=== PATIENT | male | born 1955 | race African-American/Black ===

== ENCOUNTER 2019-08-29 21:48 | Emergency (ER) | payer OTHER ==
[~2019-08-29] VITALS: Ht 170.2 cm; Wt 86.2 kg
[~2019-08-29 21:48] MED LIST: KEFLEX500 MG PO; LOPRESSOR25 PO; METFORMIN HCL500 MG PO; NORCO 5-325 TA1 EACH PO; PERCOCET 5-3251 EACH PO
[2019-08-29] MEDS ORDERED: NORVASC2.5 M1 PO (21:55)
[2019-08-29] MEDS ORDERED: KEFLEX500 M2 PO (23:58)
[2019-08-30 00:03] VITALS: BP 143/90
== END 2019-08-30 00:10 | disposition home or self-care (01) ==
LOC: ER 21:48
DX: S01.112A Laceration without foreign body of left eyelid and periocular area, initial encounter (principal); S50.311A Abrasion of right elbow, initial encounter; S80.212A Abrasion, left knee, initial encounter; S80.211A Abrasion, right knee, initial encounter; E11.9 Type 2 diabetes mellitus without complications; Z79.899 Other long term (current) drug therapy; V18.4XXA Pedal cycle driver injured in noncollision transport accident in traffic accident, initial encounter; Y93.I9 Activity, other involving external motion; Y92.488 Other paved roadways as the place of occurrence of the external cause; Y99.8 Other external cause status